=== PATIENT | male | born 1965 | race Caucasian/White ===

== ENCOUNTER 2020-10-23 16:12 | Outpatient (CLI) | payer OTHER, SELFPAY ==
--- NOTE | ~2020-10-23 | US_ITS ---
EXAMINATION: US venous doppler LE RT DATE: 10/23/2020 16:45 INDICATION: Right lower limb swelling, pain and erythema TECHNIQUE: Grayscale ultrasound images without and with compression and Doppler ultrasound images of the right lower extremity veins were obtained. COMPARISON: None. FINDINGS: The visualized portions of right common femoral vein, profunda (deep) femoral vein, femoral vein, pos terior tibial veins, peroneal veins, gastrocnemius vein and greater saphenous vein outflow are patent . IMPRESSION: 1. No deep venous thrombosis in the right lower limb. Reviewed, dictated and finalized at location A.
== END 2020-10-23 16:13 | disposition home or self-care (01) ==
PROVIDERS: PCP Physician Assistant; Visit Provider Physician Assistant
DX: R60.0 Localized edema (principal)
CPT/HCPCS: 93971

== ENCOUNTER → 2021-02-02 03:26 | Outpatient (CLI) | payer OTHER, SELFPAY ==
[2021-02-03 01:26] LABS: SARS-CoV-2 RNA PCR Negative
== END ==
PROVIDERS: PCP Physician Assistant; Visit Provider Physician Assistant
DX: R50.9 Fever, unspecified (principal); Z20.822 Contact with and (suspected) exposure to COVID-19
CPT/HCPCS: C9803; U0003; U0005

== ENCOUNTER 2022-10-12 16:28 | Outpatient (CLI) | payer OTHER, SELFPAY ==
--- NOTE | ~2022-10-12 | XR_ITS ---
XR lumbar spine 2-3V DATE: 10/12/2022 16:43 INDICATION: Low back pain TECHNIQUE: AP, lateral, coned lateral lumbosacral views COMPARISON: None FINDINGS: There is osteopenia. There is mild thoracolumbar dextroscoliosis. There is multilevel degenerative disc disease, moderately severe at L1-2, moderate at L2-3, severe at L3-4 and L4-5. There is associated mild retrolisthesis at L3-4. Included lower thoracic and lumbar pedicles are intact. No fracture or bone destruction is evident. The sacroiliac joints appear normal. IMPRESSION: Osteopenia Mild thoracolumbar dextroscoliosis Multilevel degenerative disc disease, most prominent at L1-2, L3-4 and L4-5, with associated mild ret rolisthesis at L3-4 Reviewed, dictated and finalized at location [] IMPRESSION: Osteopenia Mild thoracolumbar dextroscoliosis Multilevel degenerative disc disease, most prominent at L1-2, L3-4 and L4-5, wi th associated mild retrolisthesis at L3-4
== END 2022-10-12 16:29 ==
PROVIDERS: PCP Physician Assistant; Visit Provider Physician Assistant
DX: M41.86 Other forms of scoliosis, lumbar region (principal); M51.36 Other intervertebral disc degeneration, lumbar region
CPT/HCPCS: 72100